=== PATIENT | female | born 1970 | race Caucasian/White ===

== ENCOUNTER 2022-05-24 08:45 | Day surgery (SDC) | payer OTHER, BC ==
[~2022-05-24 08:45] MED LIST: Lactated Ringers 1,000 ML IV SCH; Lidocaine 1%/Sod Bicarbonate in NS 8.4% 1 ML Syringe IDERM PRN; Sodium Chloride 0.9% 10 ML Syringe FLUSH PRN; Sodium Chloride 0.9% 10 ML Syringe FLUSH SCH
[2022-05-24] MEDS ORDERED: Lidocaine 1% 10 ML MDV ONE (10:32)
[2022-05-24] MEDS ORDERED: ceFAZolin 2 GM Vial ONE (10:32)
[2022-05-24] MEDS ORDERED: Lidocaine 1% 2 ML ONE (10:32)
[2022-05-24] MEDS ORDERED: Propofol 200 MG/20 ML SDV ONE (10:32)
[2022-05-24] MEDS ORDERED: Bupivacaine 0.5% 30 ML SDV ONE (10:32)
[2022-05-24] MEDS ORDERED: fentaNYL 100 MCG/2 ML SDV ONE ×2 (10:33→13:12)
[2022-05-24] MEDS ORDERED: Midazolam 1 MG/ML 2 ML SDV ONE (10:34)
[2022-05-24] MEDS ORDERED: Ropivacaine 0.5% 5 MG/ML 30 ML SDV ONE (11:54)
[2022-05-24] MEDS ORDERED: Ondansetron 4 MG/2 ML SDV ONE (12:31)
[2022-05-24] MEDS ORDERED: fentaNYL 100 MCG/2 ML SDV IVPUSH ONE (14:00)
[2022-05-24] MEDS ORDERED: HYDROmorphone 0.5 MG/0.5 ML Syringe IVPUSH PRN (15:01)
[2022-05-24] MEDS ORDERED: fentaNYL 100 MCG/2 ML SDV IVPUSH PRN (15:01)
[2022-05-24] MEDS ORDERED: Ondansetron 4 MG/2 ML SDV IVPUSH PRN (15:01)
== END 2022-05-24 14:56 | disposition home or self-care (01) ==
LOC: JD.SDS 08:45
PROVIDERS: ATTEND Podiatrist Foot & Ankle Surgery
DX: M21.6X1 Other acquired deformities of right foot (principal); M76.61 Achilles tendinitis, right leg; F41.9 Anxiety disorder, unspecified; M25.541 Pain in joints of right hand; M25.561 Pain in right knee; M25.562 Pain in left knee; D22.5 Melanocytic nevi of trunk; R39.15 Urgency of urination; R35.0 Frequency of micturition; F32.A Depression, unspecified; Z79.899 Other long term (current) drug therapy; Z98.890 Other specified postprocedural states
CPT/HCPCS: 27687; J0690; J2250; J2405; J2704; J2795; J3010; J3490; J7120; 64450; 76942